=== PATIENT | male | born 1955 | race Caucasian/White ===

== ENCOUNTER 2023-04-07 17:10 | Observation (INO) ==
--- NOTE | 2023-04-07 17:28 | EKG ---
Test Reason : chest pain Blood Pressure : */* mmHG Vent. Rate : 95 BPM Atrial Rate : 95 BPM P-R Int : 162 ms QRS Dur : 106 ms QT Int : 352 ms P-R-T Axes : 58 5 58 degrees QTc Int : 442 ms Normal sinus rhythm Incomplete right bundle branch block Borderline ECG No previous ECGs available Confirmed by Ángel Hernandes MD ([id number]) on 04/08/2023 7:35:14 AM Referred By: Confirmed By: Ángel Hernandes MD
[2023-04-07 18:06] LABS: BASOPHILS # (AUTO) 0.1 X10^3/uL (0.0-0.1); BASOPHILS % (AUTO) 0.5 % (0.2-1.0); EOSINOPHILS # (AUTO) 0.3 x10^3/uL (0.0-0.2); HEMATOCRIT 38.9 % (42.0-54.0); HEMOGLOBIN 13.3 g/dL (13.5-18.0); LYMPHOCYTES # (AUTO) 1.2 X10^3/uL (1.3-2.9); LYMPHOCYTES % (AUTO) 9.8 % (21.0-51.0); MEAN CORPUSCULAR HEMOGLOBIN 32.3 pg (27.0-34.0); MEAN CORPUSCULAR HGB CONC 34.2 g/dL (33.0-35.0); MEAN CORPUSCULAR VOLUME 94.5 fL (80.0-100.0); MEAN PLATELET VOLUME 7.5 fL (7.4-11.0); MONOCYTES # (AUTO) 1.2 x10^3/uL (0.3-0.8); MONOCYTES % (AUTO) 9.6 % (0.0-13.0); NEUTROPHILS # (AUTO) 9.8 x10^3/uL (2.2-4.8); NEUTROPHILS % (AUTO) 78.1 % (42.0-75.0); PLATELET COUNT 360 X10^3/uL (150.0-450.0); RED BLOOD COUNT 4.12 X10^6/uL (4.7-6.0); WHITE BLOOD COUNT 12.5 X10^3/uL (3.6-10.0)
--- NOTE | 2023-04-07 18:11 | DR.CP ---
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 whenever he has ambulated he feels sob and has chest pain. Patient states that he has pain in his left arm that radiates to his shoulder and back.Patient denies: fever,n,v,abdl pain,dizziness.palpitations,syncope,h/o dvt,h/o PE. Chief Complaint:: PT STATES THAT SINCE SATURDAY HE HAS BEEN HAVING SOB WHEN WALKING AND SOME CHEST PAIN, HE IS HAVE LEFT ARM PAIN THAT IS GOING UP TO HIS LEFT SHOULDER AND INTO THE LEFT UPPER BACK AREA. COVID-19 Coronavirus risk:travel/contact w/high risk person: No Has patient experienced Coronavirus symptoms: No Source History Provided: Patient and Family Member Mode of Arrival Mode of Arrival: Ambulatory Timing Onset of Chief Complaint: 04/04/23 PMH PMH Past Medical History: Yes Past Medical History: Hypertension Past Surgical History: Yes Surgical History: Ortho Surgery Past Surgical History Comment: COLONOSCOPY Family History History of Family Medical Conditions: Yes Family Medical History: [place], Coronary Artery Disease, Sudden Cardiac and Hypertension Social History Type of Tobacco Use: Smokeless Does any household member use tobacco: Yes Alcohol Use: Heavy Do you use any recreational Drugs:: Yes Lives With: Family Lives Where: Home Travel Risk Coronavirus risk:travel/contact w/high risk person: No Has patient experienced Coronavirus symptoms: No Infectious screening In the last 2 months have you had wt loss of >10#?: NO Have you had fever, night sweats or hemotysis?: No Have you traveled outside the country in the last 6 months?: No Isolation: Standard ROS Review of Systems Constitutional: No Symptoms Reported Eyes: No Symptoms Reported ENTM: No Symptoms Reported Respiratoy: Short of Breath Cardiovascular: Chest Pain; negative Palpitations Gastrointestinal/Abdominal: No Symptoms Reported Genitourinary: No Symptoms Reported Neurological: No Symptoms Reported Musculoskeletal: No Symptoms Reported Integumentary: No Symptoms Reported Hematologic/Lymphatic: No Symptoms Reported Endocrine: No Symptoms Reported Psychiatric: No Symptoms Reported All Other Systems: Reviewed and Negative PE Vitals Vitals: Vital Signs Temperature 98.2 F Pulse Rate [Left Brachial] 90 Pulse Rate 102 Pulse Rate 97 Pulse Rate 99 Pulse Rate 104 Pulse Rate 100 Pulse Rate 91 Pulse Rate 92 Pulse Rate 92 Pulse Rate 87 Pulse Rate 96 Pulse Rate 92 Pulse Rate 92 Pulse Rate 94 Pulse Rate 96 Pulse Rate 94 Pulse Rate 94 Pulse Rate 95 Pulse Rate 93 Pulse Rate 93 Pulse Rate 94 Pulse Rate 97 Pulse Rate 99 Pulse Rate 101 Respiratory Rate 30 Respiratory Rate 28 Respiratory Rate 29 Respiratory Rate 29 Respiratory Rate 31 Respiratory Rate 33 Respiratory Rate 29 Respiratory Rate 18 Respiratory Rate 26 Respiratory Rate 28 Respiratory Rate 33 Respiratory Rate 26 Respiratory Rate 26 Respiratory Rate 41 Respiratory Rate 24 Respiratory Rate 26 Respiratory Rate 32 Respiratory Rate 29 Respiratory Rate 29 Respiratory Rate 25 Respiratory Rate 33 Respiratory Rate 26 Respiratory Rate 26 Respiratory Rate 20 Blood Pressure [Left Arm] 162/79 Blood Pressure 143/78 Blood Pressure 134/73 Blood Pressure 155/80 Blood Pressure 162/79 Blood Pressure 128/87 O2 Sat by Pulse Oximetry 93 O2 Sat by Pulse Oximetry 92 O2 Sat by Pulse Oximetry 94 O2 Sat by Pulse Oximetry 95 O2 Sat by Pulse Oximetry 95 O2 Sat by Pulse Oximetry 94 O2 Sat by Pulse Oximetry 95 O2 Sat by Pulse Oximetry 95 O2 Sat by Pulse Oximetry 95 O2 Sat by Pulse Oximetry 96 O2 Sat by Pulse Oximetry 97 O2 Sat by Pulse Oximetry 97 O2 Sat by Pulse Oximetry 96 O2 Sat by Pulse Oximetry 96 O2 Sat by Pulse Oximetry 95 General Limitations: No Limitations General Appearance: Alert and In No Apparent Distress Head Head Exam: Normal Inspection Eyes Eye exam: Normal Appearance ENT ENT Exam: Normal Exam Chest Chest Inspection: Normal Inspection Respiratory Respiratory Exam: Normal Lung Sounds Bilat Respiratory Exam: Bilateral: Clear to Auscultation Cardiovascular Cardiovascular Exam: Regular Rate and Normal Rhythm Pulse: Normal Edema: Normal Abdominal Exam Abdominal Exam: Normal Inspection, Normal Bowel Sounds and Soft Extremities Extremities Exam: Normal Inspection Back Back Exam: Normal Inspection Neurologic Neurological Exam: Alert and Oriented X3 Psychiatric Psychiatric Exam: Normal Affect and Normal Mood Skin Skin Exam: Warm, Dry, Intact and Normal Color MDM Differential Diagnosis Differential Diagnosis: CHF, Myocardial Infarction, Pneumonia and Pulmonary Embolus COURSE Treatment Treatment: Patient was brought to a monitored room. His labs were drawn and tests were done. Patient's chest x-ray did not reveal an acute process. Review of his labs revealed: A positive D-dimer 1.17, negative troponin, EKG that did not reveal acute ischemic changes, stable CMP, stable CBC. IV access was attempted and unsuccessful in the ER. Discussed case with Dr. Rodriguez. Dr. Rodriguez will admit the patient to his service. Patient will be given normal saline at 80 mL/h for hydration therapy. Patient was stable in the emergency department. He will be sent for either a chest CTA or a ventilation/perfusion scan as requested by Dr Rodriguez. Patient began to feel anxious in the ED and was given hydroxyzine 25 mg po x 1 dose in the ED. [facility] Labs Reviewed 04/07/23 17:50 04/07/23 17:50 Laboratory: WBC 12.5 X10^3/uL (3.6-10.0) H 04/07/23 17:50 RBC 4.12 X10^6/uL (4.7-6.0) L 04/07/23 17:50 Hgb 13.3 g/dL (13.5-18.0) L 04/07/23 17:50 Hct 38.9 % (42.0-54.0) L 04/07/23 17:50 MCV 94.5 fL (80.0-100.0) 04/07/23 17:50 MCH 32.3 pg (27.0-34.0) 04/07/23 17:50 MCHC 34.2 g/dL (33.0-35.0) 04/07/23 17:50 RDW 13.0 % (11.6-16.5) 04/07/23 17:50 Plt Count 360 X10^3/uL (150.0-450.0) 04/07/23 17:50 MPV 7.5 fL (7.4-11.0) 04/07/23 17:50 Neut % (Auto) 78.1 % (42.0-75.0) H 04/07/23 17:50 Lymph % (Auto) 9.8 % (21.0-51.0) L 04/07/23 17:50 [place] % (Auto) 9.6 % (0.0-13.0) 04/07/23 17:50 Eos % (Auto) 2.0 % (0.9-2.9) 04/07/23 17:50 Baso % (Auto) 0.5 % (0.2-1.0) 04/07/23 17:50 Neut # (Auto) 9.8 x10^3/uL (2.2-4.8) H 04/07/23 17:50 Lymph # (Auto) 1.2 X10^3/uL (1.3-2.9) L 04/07/23 17:50 [place] # (Auto) 1.2 x10^3/uL (0.3-0.8) H 04/07/23 17:50 Eos # (Auto) 0.3 x10^3/uL (0.0-0.2) H 04/07/23 17:50 Baso # (Auto) 0.1 X10^3/uL (0.0-0.1) 04/07/23 17:50 Absolute Nucleated RBC 0.1 /100WBC 04/07/23 17:50 D-Dimer 1.17 ug/ml (0.0-0.57) H 04/07/23 17:50 Sodium 141 mmol/L (136-145) 04/07/23 17:50 Corrected Sodium TNP 04/07/23 17:50 Potassium 3.7 mmol/L (3.5-5.1) 04/07/23 17:50 Chloride 105 mmol/L (98-107) 04/07/23 17:50 Carbon Dioxide 25.0 mmol/L (21-32) 04/07/23 17:50 BUN 11 mg/dL (7-18) 04/07/23 17:50 Creatinine 1.03 mg/dL (0.70-1.30) 04/07/23 17:50 Est GFR (MDRD) Af Amer > 60 (>60) 04/07/23 17:50 Est GFR (MDRD) Non-Af > 60 (>60) 04/07/23 17:50 Glucose 108 mg/dL (65-99) H 04/07/23 17:50 Calcium 9.1 mg/dL (8.5-10.1) 04/07/23 17:50 Corrected Calcium TNP 04/07/23 17:50 Total Bilirubin 0.30 mg/dL (0.2-1.0) 04/07/23 17:50 AST 17 Units/L (15-37) 04/07/23 17:50 ALT 20 Units/L (12-78) 04/07/23 17:50 Alkaline Phosphatase 89 Units/L (46-116) 04/07/23 17:50 Creatine Kinase 53 Units/L (39-308) 04/07/23 17:50 Troponin I High Sens < 4.0 ng/L (4.0-60.0) L 04/07/23 17:50 Total Protein 8.3 g/dL (6.4-8.2) H 04/07/23 17:50 Albumin 3.4 g/dL (3.4-5.0) 04/07/23 17:50 Globulin 4.9 g/dL (2.5-4.5) H 04/07/23 17:50 Albumin/Globulin Ratio 0.7 Ratio (1.1-2.1) L 04/07/23 17:50 SARS-CoV-2 (PCR) Negative (NEGATIVE) 04/07/23 17:19 Influenza Type A (PCR) Negative (NEGATIVE) 04/07/23 17:19 Influenza Type B (PCR) Negative (NEGATIVE) 04/07/23 17:19 RSV (PCR) Negative (NEGATIVE) 04/07/23 17:19 Opioid Opioid Risk Tool Age (Julio box if 16-45): No History of Preadolescent Sexual Abuse: No Total: 0 Total Score Risk Category: Low Risk Copyright: Christopher WALKER predicting aberrant behaviors Discharge Plan Diagnosis Discharge Problem: Chest pain, Elevated d-dimer Discharge Plan Patient Disposition: 09 ADMITTED INPATIENT Condition: Stable Orders to Discharge Patient Discharge Orders: Transfer (Routine); Ordered 04/07/23 Ordered By: Kimberly Bermeo
[2023-04-07 18:17] LABS: ALANINE AMINOTRANSFERASE 20 Units/L (12-78); ALBUMIN 3.4 g/dL (3.4-5.0); ALKALINE PHOSPHATASE 89 Units/L (46-116); ASPARTATE AMINO TRANSFERASE 17 Units/L (15-37); BLOOD UREA NITROGEN 11 mg/dL (7-18); CALCIUM 9.1 mg/dL (8.5-10.1); CHLORIDE 105 mmol/L (98-107); CREATINE KINASE 53 Units/L (39-308); CREATININE 1.03 mg/dL (0.70-1.30); GLUCOSE 108 mg/dL (65-99); POTASSIUM 3.7 mmol/L (3.5-5.1); SODIUM 141 mmol/L (136-145); TOTAL PROTEIN 8.3 g/dL (6.4-8.2); eGFR NON BLACK RACES > 60 (>60)
--- NOTE | 2023-04-07 21:59 | RAD ---
EXAM:CHEST, 1 VIEWHISTORY:chest pains, sob;COMPARISON:None available.FINDINGS:The trachea is midline. The cardiac silhouette is unremarkable. There is scarring or fibrosis with mild volume loss within the right upper lobe. No pneumothorax. The lungs are clear without focal infiltrate or effusion. The bony thorax is unremarkable.IMPRESSION:Mild volume loss with parenchymal scarring right upper lobe.No active cardiopulmonary diseaseTHIS IS AN ELECTRONICALLY VERIFIED FINAL REPORT04/07/2023 9:56 PM - Electronically signed by Jose Rubio MD
[2023-04-07] MEDS ORDERED: ATARAX TAB 25 MG PO ONE ×2 (22:01→22:02)
[2023-04-07] MEDS ORDERED: NS 1,000 ML IV 1,000 ML ONE (22:09)
[2023-04-07] MEDS ORDERED: NS 1,000 ML IV 1,000 ML IV SCH ×3 (23:00→23:28)
[2023-04-07 23:12] VITALS: BMI 24.7
[2023-04-08 06:43] LABS: BASOPHILS # (AUTO) 0.1 X10^3/uL (0.0-0.1); BASOPHILS % (AUTO) 0.8 % (0.2-1.0); EOSINOPHILS # (AUTO) 0.2 x10^3/uL (0.0-0.2); EOSINOPHILS % (AUTO) 2.5 % (0.9-2.9); HEMATOCRIT 36.4 % (42.0-54.0); HEMOGLOBIN 12.3 g/dL (13.5-18.0); LYMPHOCYTES # (AUTO) 1.4 X10^3/uL (1.3-2.9); LYMPHOCYTES % (AUTO) 15.7 % (21.0-51.0); MEAN CORPUSCULAR HEMOGLOBIN 32.2 pg (27.0-34.0); MEAN CORPUSCULAR HGB CONC 33.8 g/dL (33.0-35.0); MEAN CORPUSCULAR VOLUME 95.2 fL (80.0-100.0); MEAN PLATELET VOLUME 7.5 fL (7.4-11.0); MONOCYTES % (AUTO) 11.3 % (0.0-13.0); NEUTROPHILS # (AUTO) 6.2 x10^3/uL (2.2-4.8); NEUTROPHILS % (AUTO) 69.7 % (42.0-75.0); PLATELET COUNT 334 X10^3/uL (150.0-450.0); RED BLOOD COUNT 3.82 X10^6/uL (4.7-6.0); RED CELL DISTRIBUTION WIDTH 13.2 % (11.6-16.5); WHITE BLOOD COUNT 8.8 X10^3/uL (3.6-10.0)
[2023-04-08 07:28] LABS: ALANINE AMINOTRANSFERASE 16 Units/L (12-78); ALBUMIN 2.9 g/dL (3.4-5.0); ALKALINE PHOSPHATASE 80 Units/L (46-116); ASPARTATE AMINO TRANSFERASE 13 Units/L (15-37); BLOOD UREA NITROGEN 12 mg/dL (7-18); CALCIUM 8.7 mg/dL (8.5-10.1); CARBON DIOXIDE 22.5 mmol/L (21-32); CHLORIDE 106 mmol/L (98-107); COR CA(FOR HYPOALB) 9.6 mg/dL (8.5-10.1); CREATININE 0.86 mg/dL (0.70-1.30); GLUCOSE 93 mg/dL (65-99); POTASSIUM 3.7 mmol/L (3.5-5.1); SODIUM 140 mmol/L (136-145); TOTAL PROTEIN 7.3 g/dL (6.4-8.2); eGFR NON BLACK RACES > 60 (>60)
[2023-04-08] MEDS ORDERED: ZESTRIL TAB 20 MG ONE (08:35)
[2023-04-08] MEDS: ZESTRIL TAB 20 MG PO SCH (08:42)
[2023-04-08] MEDS ORDERED: PROTONIX TAB 40 MG PO SCH (09:00)
[2023-04-08] MEDS ORDERED: CONSULT PHARMACY - POTASSIUM & MAGNESIUM XX SCH (09:00)
[2023-04-08] MEDS: NS + KCL 20 MEQ/L 1,000 ML with MAGNESIUM SULFATE 50% INJ VIAL 1 G IV SCH ×2 (09:34)
[2023-04-08] MEDS: PROTONIX INJ 40 MG VIAL IVP SCH ×2 (10:22→20:45)
[2023-04-08] MEDS: ROCEPHIN VIAL 1 GRAM 1 G in NS 100 ML IV 100 ML IV SCH (10:35)
[2023-04-08] MEDS: VALIUM PO PRN ×2 (10:43→20:44)
[2023-04-08] MEDS ORDERED: OMNIPAQUE 350 mg/mL 100 mL BTL 100 ML ONE (11:35)
--- NOTE | 2023-04-08 12:25 | CT ---
EXAM:CTA, CHESTHISTORY:Elevated D-dimerTECHNIQUE:Axial postcontrast images with coronal and sagittal reformats. Three-dimensional maximum intensity projection images were obtained and evaluated. Dose reduction techniques were used with MA/kv adjusted for body size.COMPARISON:None availableFINDINGS:There is no evidence for acute pulmonary thromboembolic disease. Examination of the mediastinum demonstrated no evidence for mediastinal masses, and large mediastinal or enlarged hilar adenopathy or significant aortic abnormality. No pleural effusions are identified. There is a small hiatal hernia present. Those portions of the upper abdominal organs visualized appeared within normal limits to the limitations of early arterial injection timing. Examination of the lung malik demonstrated some pleural-parenchymal scarring in the right upper lobe corresponding to that noted on plain film. Similar but less prominent scarring and superior segment of the right lower lobe. No masses, bronchiectasis, or peribronchial thickening identified. Diffuse ground-glass infiltrates are present posteriorly and inferiorly in the right lower lobe likely infectious in origin. There superimposed on more chronic interstitial lung changes. There is a benign calcified granuloma in the left lower lobe. No significant pulmonary nodules are identified.IMPRESSION:No evidence for acute pulmonary thromboembolic diseaseGround-glass infiltrates in the right lower lobe as described above superimposed on more chronic interstitial lung changes. Findings are suspicious for developing pneumoniaPleural-parenchymal scarring right upper lobeOld granulomatous diseaseSmall hiatal herniaTHIS IS AN ELECTRONICALLY VERIFIED FINAL REPORT04/08/2023 12:21 PM - Electronically signed by Angel Bell MD
[2023-04-08] MEDS ORDERED: ATARAX TAB 25 MG PO PRN (12:41)
[2023-04-08] MEDS ORDERED: ZITHROMAX INJ 500 MG VIAL IV ONE (13:06)
[2023-04-08] MEDS: NS 1,000 ML IV 1,000 ML with MVI INJ (ADULT) 10 ML IV SCH ×2 (13:22)
[2023-04-08] MEDS: ZITHROMAX INJ 500 MG VIAL 250 MG in NS 250 ML IV 250 ML IV SCH (13:22)
--- NOTE | 2023-04-08 15:01 | CT ---
EXAM:CERVICAL SPINE W/O CONHISTORY:C- SPINE DDD; PT C/O PAIN GOING DOWN IN LEFT SHOULDERCOMPARISON:None available.TECHNIQUE:Multiple axial images of the cervical spine were obtained from the skull base to the thoracic inlet without administration of IV contrast. Sagittal and coronal reformats were performed and reviewed. Dose reduction techniques including Automated Exposure Control (AEC) and adjustment of mA and kV were utilized.FINDINGS:Alignment of the cervical spine is maintained. No evidence for acute cortical disruption or subluxation can be seen. The central canal remains free of compromise from bony fragments or significant soft tissue encroachment. The posterior elements appear unremarkable. The prevertebral soft tissues are normal in their appearance. In addition, the surrounding paraspinous soft tissues are unremarkable. Moderate degenerative changes of the cervical spine are noted with a least moderate narrowing of the neural foramina at the C4 through C7 levels.. There are some chronic pleural thickening in the right lung apexIMPRESSION:No evidence for traumatic injury of the cervical spine.THIS IS AN ELECTRONICALLY VERIFIED FINAL REPORT04/08/2023 2:57 PM - Electronically signed by Johnny Wilder MD
[2023-04-08] MEDS ORDERED: PULMICORT NEB TX 0.5 MG NEB SCH (18:00)
[2023-04-08] MEDS: ROBITUSSIN DM PO SCH ×2 (18:05→20:44)
[2023-04-08] MEDS ORDERED: SEROquel TAB 25 mg PO SCH (21:00)
[2023-04-09 04:17] VITALS: RESP 18
[2023-04-09] MEDS: NS + KCL 20 MEQ/L 1,000 ML with MAGNESIUM SULFATE 50% INJ VIAL 1 G IV SCH ×6 (04:33→11:46)
[2023-04-09 06:39] LABS: BASOPHILS # (AUTO) 0.1 X10^3/uL (0.0-0.1); BASOPHILS % (AUTO) 1.1 % (0.2-1.0); EOSINOPHILS # (AUTO) 0.3 x10^3/uL (0.0-0.2); EOSINOPHILS % (AUTO) 4.4 % (0.9-2.9); HEMATOCRIT 36.3 % (42.0-54.0); HEMOGLOBIN 12.1 g/dL (13.5-18.0); LYMPHOCYTES # (AUTO) 1.5 X10^3/uL (1.3-2.9); LYMPHOCYTES % (AUTO) 19.5 % (21.0-51.0); MEAN CORPUSCULAR HEMOGLOBIN 31.9 pg (27.0-34.0); MEAN CORPUSCULAR HGB CONC 33.3 g/dL (33.0-35.0); MEAN CORPUSCULAR VOLUME 95.7 fL (80.0-100.0); MEAN PLATELET VOLUME 7.7 fL (7.4-11.0); NEUTROPHILS # (AUTO) 4.9 x10^3/uL (2.2-4.8); PLATELET COUNT 365 X10^3/uL (150.0-450.0); RED BLOOD COUNT 3.79 X10^6/uL (4.7-6.0); RED CELL DISTRIBUTION WIDTH 12.9 % (11.6-16.5); WHITE BLOOD COUNT 7.9 X10^3/uL (3.6-10.0)
[2023-04-09 06:50] LABS: ALANINE AMINOTRANSFERASE 15 Units/L (12-78); ALBUMIN 2.9 g/dL (3.4-5.0); ALKALINE PHOSPHATASE 76 Units/L (46-116); ASPARTATE AMINO TRANSFERASE 15 Units/L (15-37); BLOOD UREA NITROGEN 9 mg/dL (7-18); CALCIUM 8.6 mg/dL (8.5-10.1); CARBON DIOXIDE 22.9 mmol/L (21-32); CHLORIDE 108 mmol/L (98-107); COR CA(FOR HYPOALB) 9.5 mg/dL (8.5-10.1); CREATININE 0.84 mg/dL (0.70-1.30); GLUCOSE 86 mg/dL (65-99); MAGNESIUM 2.1 mg/dL (2.0-2.9); POTASSIUM 4.2 mmol/L (3.5-5.1); SODIUM 142 mmol/L (136-145); TOTAL PROTEIN 7.3 g/dL (6.4-8.2); eGFR NON BLACK RACES > 60 (>60)
[2023-04-09] MEDS ORDERED: ZESTRIL TAB 20 MG ONE (09:13)
[2023-04-09] MEDS: ZESTRIL TAB 20 MG PO SCH (09:23)
[2023-04-09] MEDS: PROTONIX INJ 40 MG VIAL IVP SCH (09:24)
[2023-04-09] MEDS: ROBITUSSIN DM PO SCH ×2 (09:25→13:43)
[2023-04-09] MEDS: ROCEPHIN VIAL 1 GRAM 1 G in NS 100 ML IV 100 ML IV SCH (09:26)
[2023-04-09 09:46] VITALS: BP 149/75; PULSE 83; TEMP 97.3; O2SAT 94
[2023-04-09] MEDS: ZITHROMAX INJ 500 MG VIAL 250 MG in NS 250 ML IV 250 ML IV SCH (10:11)
--- NOTE | 2023-04-09 13:16 | RAD ---
EXAM:CHEST, PA/LAT ADULTHISTORY:SOB, FOLLOW UP PNEUMONIA;COMPARISON:Prior study or studies were utilized for comparison during interpretation with the most relevant dated 04/08/2023TECHNIQUE:CHEST, PA/LAT ADULTFINDINGS:Chest:Lines and tubes: Cardiac leads overlie the chest.Mediastinum: Cardiac and mediastinal shadow is within normal limits for size and contour.Pulmonary vessels: No pulmonary vascular congestion.Lung malik: Patchy opacities are seen bilaterallyPleura: No effusion. No pneumothorax.Bones and soft tissues: No acute osseous or soft tissue abnormality.IMPRESSION:1. Unchanged nonspecific patchy opacities are noted bilaterally.THIS IS AN ELECTRONICALLY VERIFIED FINAL REPORT04/09/2023 1:13 PM - Electronically signed by Ar Franklin MD
[2023-04-09] MEDS: NS 1,000 ML IV 1,000 ML with MVI INJ (ADULT) 10 ML IV SCH ×2 (13:41)
--- NOTE | 2023-04-29 12:30 | DR.H&P ---
H&P History & Physical for Day of: H&P Date: 03/07/23 Chief Complaint Chief Complaint: Dyspnea on exertion, Chest pain, Left arm/shoulder pain radiating to left upper back - onset 04/04/23 Allergies Allergies Allergy/AdvReac Type Severity Reaction Status Date / Time No Known Drug Allergies Allergy Verified 04/07/23 20:45 [NKDA] History of Present Illness History of Present Illness: The patient is a 67-year-old white male, ER admission with dyspnea on exertion, chest pain, left arm/shoulder pain radiating around to left upper back. States symptoms started on 04/04/23 and were persistent, which led to him presenting to ER on 04/07/23. He denies nausea, vomiting, fever, abdominal pain, dizziness, palpitations, syncope. Admits that he is a heavy drinker. He has a past medical history of hypertension, cervical degenerative disc disease, GERD, insomnia. ER workup included labs, chest xray, EKG. Labs revealed a stable cbc and cmp, positive d-dimer 1.17, negative troponin. EKG was negative for acute ischemic changes. Chest xray was negative for acute process. Past Medical History Past Medical History: Hypertension Past Surgical History Surgical History: Ortho Surgery Family History Family Medical History: [place], Coronary Artery Disease, Sudden Cardiac and Hypertension Social History Does patient currently use any type of tobacco product: Yes Have you used tobacco products in the last 12 months: Yes Type of Tobacco Use: Smokeless Does any household member use tobacco: Yes Alcohol Use: Heavy Drug Use: Marijuana Medications Home Medications: Home Medications Medication Instructions Recorded Confirmed Type lisinopril 20 mg tablet 20 mg PO QDAY 04/07/23 04/07/23 History pantoprazole 40 mg tablet,delayed 40 mg PO QDAY 04/07/23 04/07/23 History release (Protonix) quetiapine 25 mg tablet 25 mg PO QHS 04/07/23 04/07/23 History Labs 04/09/23 05:20 04/09/23 05:20 Labs: 04/08/23 13:24 Sputum - Expectorated Sputum Sputum Culture - Final 04/08/23 13:24 Sputum - Expectorated Sputum - Final Laboratory WBC 7.9 X10^3/uL (3.6-10.0) 04/09/23 05:20 RBC 3.79 X10^6/uL (4.7-6.0) L 04/09/23 05:20 Hgb 12.1 g/dL (13.5-18.0) L 04/09/23 05:20 Hct 36.3 % (42.0-54.0) L 04/09/23 05:20 MCV 95.7 fL (80.0-100.0) 04/09/23 05:20 MCH 31.9 pg (27.0-34.0) 04/09/23 05:20 MCHC 33.3 g/dL (33.0-35.0) 04/09/23 05:20 RDW 12.9 % (11.6-16.5) 04/09/23 05:20 Plt Count 365 X10^3/uL (150.0-450.0) 04/09/23 05:20 MPV 7.7 fL (7.4-11.0) 04/09/23 05:20 Neut % (Auto) 62.0 % (42.0-75.0) 04/09/23 05:20 Lymph % (Auto) 19.5 % (21.0-51.0) L 04/09/23 05:20 [place] % (Auto) 13.0 % (0.0-13.0) 04/09/23 05:20 Eos % (Auto) 4.4 % (0.9-2.9) H 04/09/23 05:20 Baso % (Auto) 1.1 % (0.2-1.0) H 04/09/23 05:20 Neut # (Auto) 4.9 x10^3/uL (2.2-4.8) H 04/09/23 05:20 Lymph # (Auto) 1.5 X10^3/uL (1.3-2.9) 04/09/23 05:20 [place] # (Auto) 1.0 x10^3/uL (0.3-0.8) H 04/09/23 05:20 Eos # (Auto) 0.3 x10^3/uL (0.0-0.2) H 04/09/23 05:20 Baso # (Auto) 0.1 X10^3/uL (0.0-0.1) 04/09/23 05:20 Absolute Nucleated RBC 0.1 /100WBC 04/09/23 05:20 D-Dimer 1.17 ug/ml (0.0-0.57) H 04/07/23 17:50 Sodium 142 mmol/L (136-145) 04/09/23 05:20 Corrected Sodium TNP 04/09/23 05:20 Potassium 4.2 mmol/L (3.5-5.1) 04/09/23 05:20 Chloride 108 mmol/L (98-107) H 04/09/23 05:20 Carbon Dioxide 22.9 mmol/L (21-32) 04/09/23 05:20 BUN 9 mg/dL (7-18) 04/09/23 05:20 Creatinine 0.84 mg/dL (0.70-1.30) 04/09/23 05:20 Est GFR (MDRD) Af Amer > 60 (>60) 04/09/23 05:20 Est GFR (MDRD) Non-Af > 60 (>60) 04/09/23 05:20 Glucose 86 mg/dL (65-99) 04/09/23 05:20 Calcium 8.6 mg/dL (8.5-10.1) 04/09/23 05:20 Corrected Calcium 9.5 mg/dL (8.5-10.1) 04/09/23 05:20 Magnesium 2.1 mg/dL (2.0-2.9) 04/09/23 05:20 Total Bilirubin 0.40 mg/dL (0.2-1.0) 04/09/23 05:20 AST 15 Units/L (15-37) 04/09/23 05:20 ALT 15 Units/L (12-78) 04/09/23 05:20 Alkaline Phosphatase 76 Units/L (46-116) 04/09/23 05:20 Creatine Kinase 60 Units/L (39-308) 04/07/23 22:40 Troponin I High Sens < 4.0 ng/L (4.0-60.0) L 04/07/23 22:40 Total Protein 7.3 g/dL (6.4-8.2) 04/09/23 05:20 Albumin 2.9 g/dL (3.4-5.0) L 04/09/23 05:20 Globulin 4.4 g/dL (2.5-4.5) 04/09/23 05:20 Albumin/Globulin Ratio 0.7 Ratio (1.1-2.1) L 04/09/23 05:20 SARS-CoV-2 (PCR) Negative (NEGATIVE) 04/07/23 17:19 Influenza Type A (PCR) Negative (NEGATIVE) 04/07/23 17:19 Influenza Type B (PCR) Negative (NEGATIVE) 04/07/23 17:19 RSV (PCR) Negative (NEGATIVE) 04/07/23 17:19 Review of Systems Constitutional: No Symptoms Reported Eyes: No Symptoms Reported ENT: No Symptoms Reported Respiratory: SOB with Excertion Cardiovascular: Chest Pain Gastrointestinal: No Symptoms Reported Genitourinary: No Symptoms Reported Musculoskeletal: Shoulder Pain, Arm Pain and Back Pain Skin: No Symptoms Reported Neurological: No Symptoms Reported Oriented: Normal Ear: Normal Nose: Normal Throat: Normal Respiratory: RLL Diminished and LLL Diminished Cardiovascular: Normal : Normal Auscultation: Bowel Sounds: Normal Palpation: Normal Tenderness: Normal Skin: Normal Musculoskeletal: Left and Shoulder Psychiatric: Anxiety Mood Description: Calm Affect: Normal Speech Pattern: Clear Assessment/Plan (1) Pneumonia: Qualifiers: Pneumonia type: due to unspecified organism Laterality: right Lung location: lower lobe of lung Qualified Code(s): J18.9 - Pneumonia, unspecified organism Narrative Support Text: CTA CHEST OBTAINED ON ADMISSION, SPUTUM CULTURE, IV ATBX, CARDIAC MONITORING, RESPIRATORY THERAPY Status: Acute (2) Chest pain: Qualifiers: Chest pain type: unspecified Qualified Code(s): R07.9 - Chest pain, unspecified Status: Acute (3) Elevated d-dimer: Status: Acute (4) Degenerative cervical disc: Status: Acute
--- NOTE | 2023-04-29 15:01 | PCM.DCPLAN ---
DISCHARGE SUMMARY Admission Date Date of Admission: 04/07/23 Discharge Date Discharge Date: 04/09/23 Admission Diagnoses (1) Pneumonia: Status: Acute (2) Chest pain: Status: Acute (3) Elevated d-dimer: Status: Acute (4) Degenerative cervical disc: Status: Acute Discharge Diagnoses Discharge Diagnosis: Same as admission with resolved pneumonia Discharge Medications Discharge Medications: Home Medication List lisinopril 20 mg tablet 20 mg PO QDAY 04/07/23 [History] pantoprazole 40 mg tablet,delayed release (Protonix) 40 mg PO QDAY 04/07/23 [History] quetiapine 25 mg tablet 25 mg PO QHS 04/07/23 [History] albuterol sulfate 90 mcg/actuation aerosol inhaler 2 puff inhalation QID #8.5 grams 04/09/23 [Rx] methylprednisolone 4 mg tablets in a dose pack (Medrol (Don)) See Rx Instructions PO .COMPLEX #1 ea 04/09/23 [Rx] Prescriptions: [facility] methylprednisolone [Medrol (Don)] [facility] Hospital Course Latest Lab Results: Laboratory Last Values WBC 7.9 X10^3/uL (3.6-10.0) 04/09/23 05:20 RBC 3.79 X10^6/uL (4.7-6.0) L 04/09/23 05:20 Hgb 12.1 g/dL (13.5-18.0) L 04/09/23 05:20 Hct 36.3 % (42.0-54.0) L 04/09/23 05:20 MCV 95.7 fL (80.0-100.0) 04/09/23 05:20 MCH 31.9 pg (27.0-34.0) 04/09/23 05:20 MCHC 33.3 g/dL (33.0-35.0) 04/09/23 05:20 RDW 12.9 % (11.6-16.5) 04/09/23 05:20 Plt Count 365 X10^3/uL (150.0-450.0) 04/09/23 05:20 MPV 7.7 fL (7.4-11.0) 04/09/23 05:20 Neut % (Auto) 62.0 % (42.0-75.0) 04/09/23 05:20 Lymph % (Auto) 19.5 % (21.0-51.0) L 04/09/23 05:20 [place] % (Auto) 13.0 % (0.0-13.0) 04/09/23 05:20 Eos % (Auto) 4.4 % (0.9-2.9) H 04/09/23 05:20 Baso % (Auto) 1.1 % (0.2-1.0) H 04/09/23 05:20 Neut # (Auto) 4.9 x10^3/uL (2.2-4.8) H 04/09/23 05:20 Lymph # (Auto) 1.5 X10^3/uL (1.3-2.9) 04/09/23 05:20 [place] # (Auto) 1.0 x10^3/uL (0.3-0.8) H 04/09/23 05:20 Eos # (Auto) 0.3 x10^3/uL (0.0-0.2) H 04/09/23 05:20 Baso # (Auto) 0.1 X10^3/uL (0.0-0.1) 04/09/23 05:20 Absolute Nucleated RBC 0.1 /100WBC 04/09/23 05:20 D-Dimer 1.17 ug/ml (0.0-0.57) H 04/07/23 17:50 Sodium 142 mmol/L (136-145) 04/09/23 05:20 Corrected Sodium TNP 04/09/23 05:20 Potassium 4.2 mmol/L (3.5-5.1) 04/09/23 05:20 Chloride 108 mmol/L (98-107) H 04/09/23 05:20 Carbon Dioxide 22.9 mmol/L (21-32) 04/09/23 05:20 BUN 9 mg/dL (7-18) 04/09/23 05:20 Creatinine 0.84 mg/dL (0.70-1.30) 04/09/23 05:20 Est GFR (MDRD) Af Amer > 60 (>60) 04/09/23 05:20 Est GFR (MDRD) Non-Af > 60 (>60) 04/09/23 05:20 Glucose 86 mg/dL (65-99) 04/09/23 05:20 Calcium 8.6 mg/dL (8.5-10.1) 04/09/23 05:20 Corrected Calcium 9.5 mg/dL (8.5-10.1) 04/09/23 05:20 Magnesium 2.1 mg/dL (2.0-2.9) 04/09/23 05:20 Total Bilirubin 0.40 mg/dL (0.2-1.0) 04/09/23 05:20 AST 15 Units/L (15-37) 04/09/23 05:20 ALT 15 Units/L (12-78) 04/09/23 05:20 Alkaline Phosphatase 76 Units/L (46-116) 04/09/23 05:20 Creatine Kinase 60 Units/L (39-308) 04/07/23 22:40 Troponin I High Sens < 4.0 ng/L (4.0-60.0) L 04/07/23 22:40 Total Protein 7.3 g/dL (6.4-8.2) 04/09/23 05:20 Albumin 2.9 g/dL (3.4-5.0) L 04/09/23 05:20 Globulin 4.4 g/dL (2.5-4.5) 04/09/23 05:20 Albumin/Globulin Ratio 0.7 Ratio (1.1-2.1) L 04/09/23 05:20 SARS-CoV-2 (PCR) Negative (NEGATIVE) 04/07/23 17:19 Influenza Type A (PCR) Negative (NEGATIVE) 04/07/23 17:19 Influenza Type B (PCR) Negative (NEGATIVE) 04/07/23 17:19 RSV (PCR) Negative (NEGATIVE) 04/07/23 17:19 Hospital Course: The patient is a 67 -year-old white male who was admitted after presenting to ER with complaints of 4-day history of dyspnea on exertion, chest pain, and left arm/shoulder pain radiating to left upper back. He denied nausea, vomiting, abdominal pain, fever, dizziness, palpitations, syncope. He has a past medical history of hypertension, gerd, cervical degenerative disc disease. Upon arrival to the ER, the patient had labs which revealed stable findings on cbc and cmp, negative troponin, positive d-dimer. He was negative for flu/covid/rsv. Chest xray did not reveal an acute process and EKG was negative for acute ischemic changes. He was admitted for further workup. Upon admission, he had a CTA chest which showed suspicion for developing pneumonia. Sputum cultures were obtained and he was started on IV abtx, respiratory therapy. Sputum cultures revealed normal jahaira. He had a CT cervical spine which was stable with degenerative changes. Overall, the patient reported that he felt much improved and voiced interest in discharging home. He stated that his chest pain and shortness of breath had resolved. See electronic records for diagnostic tests and lab results. He will benefit from continued po steroids and albuterol inhaler prn. He has an appointment for hospital follow up on 04/17/23. The patient was instructed to return to the ER if condition changed or worsened unexpectedly.
== END 2023-04-09 13:43 | disposition home or self-care (01) ==
LOC: MED/SURG 17:10 → ER 17:10 → MED/SURG 22:41
PROVIDERS: ADMIT Internal Medicine; ATTEND Internal Medicine
DX: M79.602 Pain in left arm; R79.1 Abnormal coagulation profile; R07.89 Other chest pain; K44.9 Diaphragmatic hernia without obstruction or gangrene; I10 Essential (primary) hypertension; M25.512 Pain in left shoulder; K21.9 Gastro-esophageal reflux disease without esophagitis; Z20.822 Contact with and (suspected) exposure to COVID-19; M50.30 Other cervical disc degeneration, unspecified cervical region; J18.8 Other pneumonia, unspecified organism; Z66 Do not resuscitate; R06.02 Shortness of breath; E83.42 Hypomagnesemia